=== PATIENT | male | born 1965 ===

== ENCOUNTER → 2017-10-27 | Outpatient (CLI) | payer BC ==
[2017-10-27 13:05] LABS: ALT/SGPT 42 U/L (12-78); AST/SGOT 28 U/L (15-37); BLOOD UREA NITROGEN 18 mg/dl (7-18); BUN/CREATININE RATIO 16.7 (10-20); CALCIUM 9.2 mg/dl (8.5-10.1); CARBON DIOXIDE 29 mmol/L (21-32); CHLORIDE 102 mmol/L (98-107); CREATININE 1.09 mg/dl (0.60-1.40); GLUCOSE 85 mg/dl (70-99); SODIUM 136 mmol/L (136-145)
[2017-10-27 13:11] LABS: CHOLESTEROL 145 mg/dl (0-200); HDL CHOLESTEROL 49 mg/dl; LDL CHOLESTEROL CALCULATED 80 mg/dl; PROSTATE SPECIFIC ANTIGEN 0.604 ng/ml (0.000-4.000); TRIGLYCERIDES 78 mg/dl (0-150); VERY LOW DENSITY LIPOPROT CALC 16 mg/dl
== END | disposition home or self-care (01) ==
LOC: C.LABMFLN 08:04
PROVIDERS: ATTEND Family Medicine
DX: I10 Essential (primary) hypertension (principal); E78.00 Pure hypercholesterolemia, unspecified; Z12.5 Encounter for screening for malignant neoplasm of prostate